=== PATIENT | female | born 1990 ===

== ENCOUNTER 2019-10-19 19:45 | Inpatient (IN) | payer BC ==
[~2019-10-19 19:45] MED LIST: Bupivacaine/Epinephrine 0.25% 30 ML VIAL ONE
[2019-10-19 20:35] VITALS: BMI 27.8
[2019-10-19] MEDS ORDERED: Ondansetron PF 4 MG/2 ML Vial IVP PRN (20:39)
[2019-10-19] MEDS ORDERED: HYDROcodone/Acetaminophen 5/325 mg Tablet PO PRN ×2 (20:39)
[2019-10-19] MEDS ORDERED: Ibuprofen 800 MG TAB PO PRN (20:39)
[2019-10-19] MEDS ORDERED: hydrALAZINE 20 MG/ML VIAL SLOW IVP PRN (20:39)
[2019-10-19] MEDS ORDERED: NS / Oxytocin 40 units/1000ml 1,000 ML IV PRN (20:39)
[2019-10-19] MEDS ORDERED: Promethazine HCl 25 MG/ML VIAL IM PRN (20:39)
[2019-10-19] MEDS ORDERED: Butorphanol Tartrate 1 MG/ML VIAL SLOW IVP PRN (20:39)
[2019-10-19] MEDS ORDERED: Lidocaine 1% (PF) 30 ML VIAL SC PRN (20:39)
[2019-10-19] MEDS ORDERED: NS w/ Oxytocin 10 units 500 ML IV SCH ×2 (20:45)
[2019-10-19] MEDS: Lactated Ringer's 1,000 ML IV SCH ×2 (20:45→23:18)
[2019-10-19 20:53] LABS: Hemoglobin 11.4 g/dL (12.0-16.0); Mean Corpuscular HGB CONC 32.6 g/dL (32.0-36.0); Mean Corpuscular Volume 85.7 fL (78.0-98.0); Mean Platelet Volume 9.9 fL (7.4-10.4); Platelet Count 225 thou/uL (130-400); RBC Distribution Width 14.9 % (11.5-14.5); Red Blood Cell (RBC) Count 4.07 mill/uL (4.20-5.40); White Blood Cell (WBC) Count 12.9 thou/uL (4.8-10.8)
[2019-10-19] MEDS ORDERED: Misoprostol 100 MCG TAB VAG SCH (21:00)
[2019-10-19 21:37] LABS: Syphilis Antibody Nonreactive (Nonreactive); Syphilis Antibody Index 0.03 S/CO (<1.00 Non-Reactive)
[2019-10-19 21:38] LABS: HBSAg Index 0.23 S/CO (0-0.99); Hep B Surf Ag Non-Reactive S/CO (NonReactive)
[2019-10-20] MEDS ORDERED: Fentanyl 4 mcg/Bup 0.1% Cadd 100 ML ONE ×2 (02:54→10:28)
[2019-10-20] MEDS ORDERED: Fentanyl 100 MCG/2 ML VIAL ONE (03:01)
[2019-10-20] MEDS: Lactated Ringer's 1,000 ML IV SCH ×2 (03:26→08:45)
[2019-10-20] MEDS ORDERED: Naloxone HCl 0.4 mg/ml Vial IVP PRN ×2 (03:36)
[2019-10-20] MEDS ORDERED: diphenhydrAMINE 50 MG/ML VIAL IVP PRN (03:36)
[2019-10-20] MEDS ORDERED: Ondansetron PF 4 MG/2 ML Vial IVP PRN ×2 (03:36→14:59)
[2019-10-20] MEDS ORDERED: Lactated Ringer's 500 ML IV PRN (03:36)
[2019-10-20] MEDS ORDERED: Promethazine HCl 25 MG/ML VIAL IM PRN (03:36)
[2019-10-20] MEDS ORDERED: Acetaminophen 325 MG TAB PO PRN (03:36)
[2019-10-20] MEDS ORDERED: EPHEDRINE 25 MG/5 ML SYRINGE SLOW IVP PRN (03:36)
[2019-10-20] MEDS ORDERED: Fentanyl 4 mcg/Bupivacaine 0.1% Cassette 100 ML EPIDURAL SCH (03:45)
[2019-10-20] MEDS ORDERED: Communication Order-Pharmacy FS SCH (03:45)
--- NOTE | 2019-10-20 13:27 | PDOC.OPDEL ---
OB Operative/Delivery Note Delivery Dr/Surgeon: Jimmy Pre-Delivery Diagnosis: elective induction Procedure/Post Delivery Dx: spontaneous vaginal delivery Weeks gestation: 39 - Findings A Sex: female - Additional Findings/Plan Repaired Obstetrical Laceration: periurethral Estimated blood loss: 250ml Post delivery plan: routine recovery
[2019-10-20] MEDS ORDERED: Benzocaine-Menthol 82.5 ML CAN TOP PRN (14:59)
[2019-10-20] MEDS ORDERED: HYDROcodone/Acetaminophen 5/325 mg Tablet PO PRN ×2 (14:59)
[2019-10-20] MEDS ORDERED: Milk Of Magnesia 30 ML UDCUP PO PRN (14:59)
[2019-10-20] MEDS ORDERED: diphenhydrAMINE 25 MG CAP PO PRN (14:59)
[2019-10-20] MEDS ORDERED: Adacel (T-DAP) 0.5 ML SYRINGE IM ONE (14:59)
[2019-10-20] MEDS ORDERED: Lanolin Ointment 7 GM TUBE TOP PRN (14:59)
[2019-10-20] MEDS ORDERED: Preparation H Ointment 28 GM TUBE PR PRN (14:59)
[2019-10-20] MEDS ORDERED: NS / Oxytocin 40 units/1000ml 1,000 ML IV SCH (14:59)
[2019-10-20] MEDS ORDERED: hydrALAZINE 20 MG/ML VIAL SLOW IVP PRN (14:59)
[2019-10-20] MEDS ORDERED: Bisacodyl 10 MG SUPP PR PRN (14:59)
[2019-10-20] MEDS: Ibuprofen 800 MG TAB PO SCH ×2 (17:24→20:35)
[2019-10-20] MEDS: Ferrous Sulfate 325 MG TAB PO SCH (17:25)
[2019-10-20] MEDS ORDERED: Sodium Chloride 0.9% 10 ML ONE (17:58)
[2019-10-20] MEDS: Docusate Calcium (SURFAK) 240 MG CAP PO SCH (20:34)
[2019-10-21] MEDS: Ibuprofen 800 MG TAB PO SCH ×2 (06:53→14:16)
[2019-10-21] MEDS: Docusate Calcium (SURFAK) 240 MG CAP PO SCH (08:33)
[2019-10-21] MEDS: Ferrous Sulfate 325 MG TAB PO SCH (08:36)
[2019-10-21] MEDS ORDERED: Prenatal Vitamin 1 TAB PO SCH (09:00)
[2019-10-21 10:57] VITALS: BP 127/78; TEMP 97.1
--- NOTE | 2019-10-21 11:28 | PDOC.PP ---
Post Progress Note Post Day #: 1 Subjective: doing well, nursing well, minimal lochia PO intake tolerated: yes Flatus: yes Ambulation: yes Vital Signs (12 hours) Temp Pulse Resp BP Pulse Ox 10/21/19 10:56 97.1 F L 52 L 20 127/78 10/21/19 08:03 98.4 F 62 20 119/75 98 10/21/19 03:50 98.7 F 68 18 121/81 10/20/19 23:45 98.9 F 70 18 113/53 L 98 Weight Weight 167 lb - Physical Examination General: NAD Respiratory: non-labored breathing Abdominal: no distention Psychiatric: normal affect Result Diagrams: 10/19/19 20:41 Additional Labs: Post Labs Blood Type O POSITIVE 10/19/19 21:32 Hep Bs Antigen Non-Reactive S/CO (NonReactive) 10/19/19 20:42 (1) 39 weeks gestation of Code(s): Z3A.39 - 39 WEEKS GESTATION OF Status: Acute (2) Vaginal delivery Code(s): O80 - ENCOUNTER FOR FULL-TERM UNCOMPLICATED DELIVERY Status: Acute - Assessment/Plan PPD1 doing well, plan for DC today if baby DC.
== END 2019-10-21 17:22 | disposition home or self-care (01) | DRG 807 ==
LOC: L&D 19:57 → 3SE 10-20 16:03
PROVIDERS: ADMIT Obstetrics & Gynecology; ATTEND Obstetrics & Gynecology
PROC: 3E033VJ Introduction of Other Hormone into Peripheral Vein, Percutaneous Approach (ICD-10-PCS; 2019-10-19)
PROC: 10E0XZZ Delivery of Products of Conception, External Approach (ICD-10-PCS; principal; 2019-10-20)
PROC: 0UQMXZZ Repair Vulva, External Approach (ICD-10-PCS; 2019-10-20)
DX: O71.82 Other specified trauma to perineum and vulva (principal); Z37.0 Single live birth; Z3A.39 39 weeks gestation of pregnancy
CPT/HCPCS: 36415; 51702; 85027; 86780; 86850; 86900; 86901; 87340; J2590; J3010